=== PATIENT | female | born 1955 | race Caucasian/White ===

== ENCOUNTER 2017-01-03 10:32 | Day surgery (SDC) | payer BC ==
--- NOTE | ~2017-01-03 | EGD ---
EGD REPORT [facility] [address] [id number] NAME: LAQUITA VARGAS : 55 STATUS : REG [facility]#: [id number] AGE: 61 ADM/REG DATE : 01/03/17 MR#: [id number] REPORT SERV DATE: 01/03/17 DICTATED BY: KYLER NINO DATE: 01/03/17 REPORT STATUS : Draft TRANSCRIBED BY: [facility] DATE: 01/03/17 Endoscopy Center Patient Name: Laquita Vargas Date of : 1955 Attending MD: KYLER NINO MD Procedure Date No Time: 01/03/2017 Procedure: Upper GI endoscopy Indications: Epigastric abdominal pain, Heartburn, Gastro-esophageal reflux disease, Diarrhea, Nausea with vomiting Referring MD: UMA VIZCARRA Medicines: Propofol per Anesthesia Complications: No immediate complications. Procedure: Pre-Anesthesia Assessment: - ASA Grade Assessment: IV - A patient with severe systemic disease that is a constant threat to life. After obtaining informed consent, the endoscope was passed under direct vision. Throughout the procedure, the patient's blood pressure, pulse, and oxygen saturations were monitored continuously. The GIF [id number] was introduced through the mouth, and advanced to the third part of duodenum. The upper GI endoscopy was accomplished without difficulty. The patient tolerated the procedure well. Findings: Non-severe esophagitis with no bleeding was found in the entire esophagus. A small hiatus hernia was present. as seen on retroflexion Diffuse moderate inflammation characterized by congestion (edema) and erythema was found in the entire examined stomach. Biopsies were taken with a cold forceps for Helicobacter pylori testing. Multiple small sessile polyps with no bleeding and no stigmata of recent bleeding were found in the gastric antrum. Biopsies were taken with a cold forceps for histology. Localized mild inflammation characterized by congestion (edema) and erythema was found in the duodenal bulb. Biopsies were taken with a cold forceps for evaluation of celiac disease. And giardia, whipple's disease, and enteritis The 2nd part of the duodenum and 3rd part of the duodenum were normal. Biopsies were taken with a cold forceps for evaluation of celiac disease. And giardia, whipple's disease, and enteritis Impression: - Non-severe reflux esophagitis. - Hiatus hernia. - Gastritis. Biopsied. EGD REPORT [facility] [id number] [place]. [address] NAME: LAQUITA VARGAS : 55 STATUS : REG [facility]#: [id number] AGE: 61 ADM/REG DATE : 01/03/17 MR#: [id number] REPORT SERV DATE: 01/03/17 DICTATED BY: KYLER NINO DATE: 01/03/17 REPORT STATUS : Draft TRANSCRIBED BY: [employer] DATE: 01/03/17 - Multiple gastric polyps. Biopsied. - Duodenitis. Biopsied. - Normal 2nd part of the duodenum and 3rd part of the duodenum. Biopsied. Recommendation: - Patient has a contact number available for emergencies. The signs and symptoms of potential delayed complications were discussed with the patient. Return to normal activities tomorrow. Written discharge instructions were provided to the patient. - Return to previous diet. - Continue present medications. - Discontinue Protonix (pantoprazole). - Use Nexium (esomeprazole) 40 mg PO BID. - take 30-60 minutes before breakfast and supper - Return to my office as previously scheduled. - Discharge patient to home. Procedure Code(s): --- Professional --- 31841, Esophagogastroduodenoscopy, flexible, transoral; with biopsy, single or multiple Diagnosis Code(s): --- Professional --- K21.0, Gastro-esophageal reflux disease with esophagitis K44.9, Diaphragmatic hernia without obstruction or gangrene K29.70, Gastritis, unspecified, without bleeding K31.7, Polyp of stomach and duodenum K29.80, Duodenitis without bleeding R10.13, Epigastric pain R12, Heartburn R19.7, Diarrhea, unspecified R11.2, Nausea with vomiting, unspecified CPT copyright 2013 [employer]. All rights reserved. The codes documented in this report are preliminary and upon core blower review may be revised to meet current compliance requirements. Kyler Nino MD KYLER NINO MD 01/03/2017 1:02 PM This report has been signed electronically. Number of Addenda: 0 EGD REPORT [facility] [address] [address] NAME: LAQUITA VARGAS : 55 STATUS : [place] [facility] [place] [id number] AGE: 61 ADM/REG DATE : 01/03/17 MR#: [id number] REPORT SERV DATE: 01/03/17 DICTATED BY: KYLER NINO DATE: 01/03/17 REPORT STATUS : Draft TRANSCRIBED BY: [employer] DATE: 01/03/17 Note Initiated On: 01/03/2017 11:59 AM Scope Withdrawal Time 0 hours 0 minutes 0 seconds [address] [id number]
[~2017-01-03 10:32] MED LIST: ACIPHEX PO; ALTACE10 MG PO; ARMOUR THYRO30 MG PO; ARMOUR THYRO60 MG PO; ARMOUR THYRO90 MG PO; ARMOUR THYROID; ASAB PO; ATIVAN PO; ATV1 PO; GLUCOPHAGE1000 MG PO; HEMOCYTET PO; IMDUR30 PO; IMDUR60 PO; KAPIDEX60 MG PO; KDUR10 PO; L20 PO; LIPITOR20 PO; LOP25 PO; MYRBETRIQ25 MG PO; NEXIUM20 M1 PO; NOVLOGPUMP SC; NOVREGPUMP SC; PEP20 PO; PREV30 PO; PRILOSEC10 MG PO; PROBIOTIC PO; PROTONIX PO; RANITIDINE PO; SYN075 PO; SYN125 PO; TOPXL25 PO; TOVIAZ PO; TOVIAZ4 MG PO; ULTRAM50 PO; ULTRAVATE0.05 % TOP; VESICARE10 MG PO; VITD PO; WELLBUTRIN PO; WELLXL150 PO; WELLXL300 PO; ZANTAC 150 PO; ZANTAC150 MG PO; ZOCOR20 PO; ZYRTEC ALLGY10 MG PO; [UNRECOGNIZED DRUG - REMARK] PO
== END 2017-01-03 23:59 | disposition home or self-care (01) ==
LOC: DMU 10:32
PROVIDERS: Internal Medicine Gastroenterology
PROC: 0DB68ZX Excision of Stomach, Via Natural or Artificial Opening Endoscopic, Diagnostic (ICD-10-PCS; 2017-01-03)
PROC: 0DB98ZX Excision of Duodenum, Via Natural or Artificial Opening Endoscopic, Diagnostic (ICD-10-PCS; principal; 2017-01-03 11:30)
DX: K29.50 Unspecified chronic gastritis without bleeding (principal); K29.80 Duodenitis without bleeding; K31.7 Polyp of stomach and duodenum; E03.9 Hypothyroidism, unspecified; E78.5 Hyperlipidemia, unspecified; I25.10 Atherosclerotic heart disease of native coronary artery without angina pectoris; G47.33 Obstructive sleep apnea (adult) (pediatric); K21.9 Gastro-esophageal reflux disease without esophagitis; K58.9 Irritable bowel syndrome, unspecified; M19.90 Unspecified osteoarthritis, unspecified site; F32.9 Major depressive disorder, single episode, unspecified; G43.909 Migraine, unspecified, not intractable, without status migrainosus; E11.40 Type 2 diabetes mellitus with diabetic neuropathy, unspecified; Z99.89 Dependence on other enabling machines and devices; Z88.5 Allergy status to narcotic agent; Z88.8 Allergy status to other drugs, medicaments and biological substances; Z79.4 Long term (current) use of insulin; Z79.899 Other long term (current) drug therapy; Z90.710 Acquired absence of both cervix and uterus; Z96.653 Presence of artificial knee joint, bilateral; Z90.49 Acquired absence of other specified parts of digestive tract; Z98.890 Other specified postprocedural states
CPT/HCPCS: 82962; 88305; 88342